=== PATIENT | female | born 2000 | race Caucasian/White ===

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

== ENCOUNTER 2019-01-08 11:04 | Outpatient (CLI) | payer OTHER ==
--- NOTE | 2019-01-08 15:39 | ULT ---
Abdominal Ultrasound: Multiple grayscale images of right upper quadrant obtained according to protocol. INDICATION: Pain FINDINGS: Liver: Hepatic steatosis. Gallbladder: Cholelithiasis. Gallbladder wall: Upper normal, 3 mm. Hendrickson's Sign: Negative Common bile duct is normal. Ascites: None Spleen: Unremarkable. Pancreas: Partially obscured by bowel content, limiting assessment. Kidneys: No acute abnormalities. Aorta/IVC: No acute process. IMPRESSION: Cholelithiasis. Fatty infiltration of liver. Correlate with liver function enzymes.
== END 2019-01-08 11:05 | disposition home or self-care (01) ==
LOC: SCSULT 11:04
PROVIDERS: ATTEND Physician Assistant
DX: K59.04 Chronic idiopathic constipation (principal); R10.10 Upper abdominal pain, unspecified; R19.7 Diarrhea, unspecified; K92.1 Melena; R11.0 Nausea; K80.20 Calculus of gallbladder without cholecystitis without obstruction; K76.0 Fatty (change of) liver, not elsewhere classified
CPT/HCPCS: 76700

== ENCOUNTER 2019-01-24 05:51 | Day surgery (SDC) | payer OTHER ==
[2019-01-23 09:49] VITALS: BMI 24.1
--- NOTE | 2019-01-23 11:22 | HP ---
HISTORY OF PRESENT ILLNESS: Yaquelin Clifton is a 18-year-old female referred for ultrasound by KYUNG Franco because of her complaints of epigastric bilateral subcostal pain and nausea. Ultrasound revealed fatty liver, normal ultrasound otherwise, except for gallstones with a normal bile duct caliber. The patient had laboratories, 01/14/2019 and 01/06/2019, revealing normal CBC, comprehensive metabolic profile with cholesterol of 216, triglyceride of 183. She presents for discussion regarding symptomatic cholelithiasis, chronic cholecystitis. ALLERGIES: NONE. HABITS: Tobacco, none. Alcohol, rarely. MEDICATIONS: None. PAST SURGICAL AND MEDICAL HISTORY: Excision of breast benign cyst/mass that I performed a year ago. REVIEW OF SYSTEMS: Ten-point noncontributory. PHYSICAL EXAMINATION: VITAL SIGNS: Weight 154 pounds, height 64 inches, 26 BMI, blood pressure 123/72, pulse 70, temperature 98.4 degrees. HEAD, EYES, EARS, NOSE, AND THROAT: Unremarkable. Sclerae nonicteric. SKIN: Nonjaundiced. LUNGS: Clear to auscultation. CARDIAC: Regular rate and rhythm. No murmur or gallop. ABDOMEN: Soft and nontender. No masses. EXTREMITIES: Unremarkable. No ankle edema. NEUROLOGICAL: Intact. No focal deficit. ASSESSMENT AND PLAN: Symptomatic cholecystitis, cholelithiasis. Recommend laparoscopic video cholecystectomy. Risks of infection, bleeding, visceral and biliary injury, open procedure discussed, questions answered. Job ID: [id number]
[2019-01-24] MEDS ORDERED: Ketorolac Tromethamine 30 MG/ML VIAL ONE (06:09)
[2019-01-24] MEDS ORDERED: Fentanyl 100 MCG/2 ML VIAL ONE (06:12)
[2019-01-24] MEDS ORDERED: Bupivacaine HCl 0.5%/Epinephrine 1:200,000/PF 30 ml Vial ONE (06:39)
[2019-01-24 06:47] LABS: BHCG - Serum Negative (NEGATIVE); Pregs Control Background? CLEAR/WHITE (CLR/WHITE); Pregs Control Bar Appear? YES (CONTROL BAR)
[2019-01-24] MEDS ORDERED: Midazolam HCl 2 mg/2 ml Vial ONE (06:48)
[2019-01-24] MEDS ORDERED: traMADol HCl 50 MG TAB ONE (09:28)
--- NOTE | 2019-01-24 14:43 | OP ---
DATE OF PROCEDURE: 01/24/2019 PREOPERATIVE DIAGNOSES: Cholecystitis, cholelithiasis. POSTOPERATIVE DIAGNOSES: Cholecystitis, cholelithiasis. PROCEDURE PERFORMED: Laparoscopic video cholecystectomy. ANESTHESIA: General, local of 0.5% Marcaine with epinephrine, 30 mL total volume used. DESCRIPTION OF PROCEDURE: The patient was taken to the operating room, where under general anesthesia, abdomen was prepared with ChloraPrep and draped in routine fashion. Local anesthetic was infiltrated in the skin and subcutaneous tissue about each port site. Infraumbilical incision was made. Pneumoperitoneum to 15 mmHg was obtained with a Veress needle, replacing with a 5 port, video laparoscope inserted. Right subxiphoid incision was made and an 11 port placed. Right subcostal incision was made at midclavicular entrance line and the 5 port was placed. Liver appeared to be normal. Gallbladder had stones. Fundus was grasped cephalad. Infundibulum was grasped, retracted laterally. Cystic artery and duct dissected free. Critical view obtained. Cystic artery and duct double clipped proximally and divided. Gallbladder was dissected free from the liver bed obtaining good hemostasis prior to division of the final peritoneal attachments. Gallbladder and contents were removed. Good hemostasis was assured in the liver bed with cautery. Irrigant and pneumoperitoneum were evacuated. All instruments removed and all skin incisions were approximated with interrupted subdermal 4-0 Monocryl and [place] glue applied. Job ID: [id number]
== END 2019-01-24 09:45 | disposition home or self-care (01) ==
LOC: SDC 05:51
PROVIDERS: ATTEND Specialist
PROC: 0FT44ZZ Resection of Gallbladder, Percutaneous Endoscopic Approach (ICD-10-PCS; principal; 2019-01-24)
DX: K80.10 Calculus of gallbladder with chronic cholecystitis without obstruction (principal)
CPT/HCPCS: 36415; 84703; 88304; J0131; J0670; J0690; J1885; J2250; J3010

== ENCOUNTER 2023-09-26 10:30 | Outpatient (CLI) | payer BC | END 2023-09-26 10:31 | disposition home or self-care (01) | LOC: BICULT 10:30 | PROVIDERS: ATTEND Nurse Practitioner Family | DX: N92.6 Irregular menstruation, unspecified (principal) | CPT/HCPCS: 76856 ==

== ENCOUNTER 2023-10-01 09:09 | Outpatient (CLI) | payer BC | END 2023-10-01 09:10 | disposition home or self-care (01) | LOC: BICMRI 09:09 | PROVIDERS: ATTEND Nurse Practitioner Family | DX: R51.9 Headache, unspecified (principal); R79.89 Other specified abnormal findings of blood chemistry | CPT/HCPCS: 70553 ==